=== PATIENT | female | born 2005 | race Caucasian/White ===

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

== ENCOUNTER 2024-04-20 20:14 | Emergency (ER) | payer BC ==
[2024-04-20] VITALS (11 sets, daily range): BP systolic 90–107; BP diastolic 59–72
[~2024-04-20] VITALS: Ht 157.5 cm; Wt 60.0 kg
[~2024-04-20 20:14] MED LIST changes: +PREDNISONE50 MG PO
[2024-04-20 21:30] LABS: BASO% 0.3 % (0-3); EOS% 0.3 % (0-8); HEMATOCRIT 40.5 % (37.0-47.0); HEMOGLOBIN 13.6 g/dl (12.0-16.0); IMMATURE GRANULOCYTES 0.1 % (0.0-5.0); LYMPH% 24.4 % (15-41); MEAN CELL VOLUME 92.5 fL CALC (80.0-100.0); MEAN CORPUSCULAR HGB 31.1 pG CALC (26.0-32.0); MEAN CORPUSCULAR HGB CONC 33.6 g/dL CAL (32.0-36.0); MONO% 6.1 % (2-13); NEUT# 6.82 thou/uL (2.00-7.15); NEUT% 68.8 % (42-76); RED BLOOD COUNT 4.38 mill/uL (4.20-5.60); RED CELL DISTRI WIDTH 11.4 % (11.5-15.5)
[2024-04-20 21:40] LABS: ALBUMIN 4.6 g/dL (3.2-5.0); ALKALINE PHOSPHATASE 38 u/l (38-126); ANION GAP 13 (6-22 (CALC)); BUN 13 mg/dL (7-17); BUN/CREATININE RATIO 16 (12-20 (CALC)); CARBON DIOXIDE 26 mmol/l (22-30); CHLORIDE 104 mmol/l (95-108); CREATININE 0.8 mg/dL (0.5-1.0); ESTIMATED GFR 107 ML/MIN (>=90 (CALC)); ETHYL ALCOHOL 0 mg/dl (0-30); MAGNESIUM 2.1 mg/dL (1.6-2.3); POTASSIUM 3.9 mmol/l (3.5-5.1); SGOT/AST 24 u/l (14-36); SODIUM 139 mmol/l (137-146); TOTAL PROTEIN 7.8 g/dL (6.3-8.2)
[2024-04-20 21:41] LABS: BILIRUBIN, TOTAL 0.5 mg/dL (0.02-1.3)
[2024-04-20 21:49] LABS: D-DIMER < 0.19 mg/L (0.19-0.60)
[2024-04-20 21:50] LABS: ACT PARTIAL THROMBO TIME 24.3 SECONDS (20.0-32.5)
[2024-04-20 21:51] LABS: PROTHROMBIN TIME 10.4 SECONDS (9.0-12.5)
[2024-04-20 23:01] LABS: URINE BILIRUBIN - DIPSTICK Negative (NEGATIVE); URINE BLOOD DIPSTICK Moderate (NEGATIVE); URINE GLUCOSE - DIPSTICK Negative (NEGATIVE); URINE KETONE Negative (NEGATIVE); URINE LEUK ESTERASE Negative (NEGATIVE); URINE NITRITE - DIPSTICK Negative (Negative); URINE PH 6.5 (4.5-8.0); URINE PROTEIN - DIPSTICK Negative (NEG-TRACE); URINE UROBILINOGEN - DIPSTICK 0.2 E.U./dL (0.2)
[2024-04-20 23:02] LABS: URINE COLOR Yellow
[2024-04-20 23:10] LABS: URINE WBC 0-2 WBC/hpf (0-5)
[2024-04-21] VITALS: BP 93/66
== END 2024-04-21 | disposition home or self-care (01) | DRG 310 ==
LOC: ED 20:14
PROVIDERS: Emergency Medicine
DX: R00.0 Tachycardia, unspecified (principal); F17.290 Nicotine dependence, other tobacco product, uncomplicated